=== PATIENT | female | born 1955 | race Caucasian/White ===

== ENCOUNTER → 2017-05-30 | Outpatient (CLI) | payer BC ==
--- NOTE | 2017-05-30 14:36 | RAD ---
HISTORY: Cervicalgia Study: Cervical spine five view Comparison: None Findings: The prevertebral soft tissues are normal. The alignment is normal. The vertebral bodies are of avera ge height. The disc spaces are preserved with the exception of degenerative disc disease at C6-7. Po sterior elements are intact. The neural foramina are patent with the exception of some spondylitic f oraminal narrowing C3-4 on the left. Diffuse bilateral facet degenerative joint disease is present. IMPRESSION: Degenerative disc disease C6-7 Diffuse bilateral facet degenerative joint disease Spondylitic foraminal narrowing at C3-4 on the left. Reported By:
== END | disposition home or self-care (01) ==
LOC: EDBD 13:47 → RAD 13:47
PROVIDERS: ATTEND Physician Assistant
DX: M50.323 Other cervical disc degeneration at C6-C7 level (principal); M81.0 Age-related osteoporosis without current pathological fracture
CPT/HCPCS: 72050